=== PATIENT | male | born 1980 | race Caucasian/White ===

== ENCOUNTER 2024-09-04 06:21 | Day surgery (SDC) | payer OTHER, SELFPAY ==
[2024-09-04] VITALS (12 sets, daily range): BP systolic 85–118; BP diastolic 42–69; BMI 27.7
[2024-09-04] MEDS: DILAUDID 0.5 MG IV (14:23)
[2024-09-04] MEDS: ZOFRAN 4 MG IV (14:28)
== END 2024-09-04 15:45 | disposition home or self-care (01) ==
LOC: SDS 06:21
PROVIDERS: ATTENDING PHYSICIAN Otolaryngology
DX: J34.89 Other specified disorders of nose and nasal sinuses (principal); J34.2 Deviated nasal septum; J34.3 Hypertrophy of nasal turbinates
CPT/HCPCS: 30140; 30520; 88300